=== PATIENT | male | born 1990 | race African-American/Black ===

== ENCOUNTER 2020-05-24 17:22 | Emergency (ER) | payer OTHER, SELFPAY ==
[2020-05-24 18:30] LABS: Bilirubin Negative (Negative); Blood, Urine Negative (Negative); Clarity Clear (Clear); Glucose, Urine (Dipstick) Normal (Negative); Ketone, Urine Negative (Negative); Leukocyte Negative Leu/uL (Negative); Nitrite Negative (Negative); Protein, Urine (Dipstick) Negative (Neg-Trace); Specific Gravity, Urine 1.019 (1.002-1.036); Urobilinogen Normal mg/dL (Less than 2); pH, Urine 6.5 (5.0-9.0)
[2020-05-25 20:15] LABS: Chlam.trachomatis by PCR,Urine Not Detected (NotDetected)
== END 2020-05-24 19:00 | disposition home or self-care (01) ==
LOC: ERS 17:22
DX: Z20.2 Contact with and (suspected) exposure to infections with a predominantly sexual mode of transmission (principal); R30.0 Dysuria; N50.819 Testicular pain, unspecified
CPT/HCPCS: 81003; 87491; 87591; 99283

== ENCOUNTER 2021-06-10 12:27 | Emergency (ER) | payer OTHER | END 2021-06-10 15:22 | disposition home or self-care (01) | LOC: ERS 12:27 | DX: R11.2 Nausea with vomiting, unspecified (principal); R19.7 Diarrhea, unspecified | CPT/HCPCS: 99283 ==